=== PATIENT | male | born 1980 | race Caucasian/White ===

== ENCOUNTER → 2016-07-06 | Outpatient (CLI) | payer OTHER ==
[2016-07-06 10:57] LABS: HEMOGLOBIN 15.7 gm/dl (14.0-17.5); RED BLOOD COUNT 5.24 M/UL (4.20-5.50); WHITE BLOOD COUNT 8.6 K/UL (4.5-11.0)
[2016-07-06 11:19] LABS: BUN/CREATININE RATIO 16 (0-10)
== END ==
LOC: LAB 09:36
PROVIDERS: Nurse Practitioner Family
DX: Z13.220 Encounter for screening for lipoid disorders (principal); R12 Heartburn; M25.532 Pain in left wrist
CPT/HCPCS: 36415; 73080; 73090; 80053; 80061; 84439; 84443; 85025